=== PATIENT | female | born 1975 | race Caucasian/White ===

== ENCOUNTER 2016-12-24 15:10 | Emergency (ER) | payer OTHER ==
[~2016-12-24] VITALS: Ht 162.6 cm; Wt 64.9 kg
[~2016-12-24 15:10] MED LIST: ADDERALL 10 MG10 MG PO; BETA BLOCKER PO; CALCIUM 500 WI1 EAC3 PO; KEFLEX500 MG PO; XANAX 0.5 MG0.5 M1 PO
[2016-12-24] MEDS ORDERED: TORADOL 10 MG T10 MG PO (16:25)
[2016-12-24 16:31] VITALS: BP 136/79
== END 2016-12-24 16:25 | disposition home or self-care (01) ==
LOC: ER 15:10
DX: K08.89 Other specified disorders of teeth and supporting structures (principal); Z98.818 Other dental procedure status; Z98.890 Other specified postprocedural states; Z87.891 Personal history of nicotine dependence; Z88.1 Allergy status to other antibiotic agents